=== PATIENT | female | born 1940 | race African-American/Black ===

== ENCOUNTER 2017-03-29 20:29 | Inpatient (IN) | payer MEDICARE ==
[~2017-03-29] VITALS: Ht 165.1 cm; Wt 50.8 kg
[~2017-03-29 20:29] MED LIST: MULT-1146 PO
[2017-03-29] MEDS ORDERED: IPRATROPIUM BROMIDE (0.02%) 0.5MG/2.5ML NEB HHN STA (20:32)
[2017-03-29] MEDS ORDERED: ALBUTEROL (0.083%) 2.5MG/3ML NEB HHN STA (20:32)
[2017-03-29] MEDS ORDERED: METHYLPREDNISOLONE SOD SUCC 125 MG/2 ML VIAL IV STA (20:32)
[2017-03-29] MEDS ORDERED: IPRATROPIUM/ALBUTEROL 0.5-3(2.5)MG/3ML NEB ONE (20:42)
[2017-03-29] MEDS ORDERED: IPRATROPIUM BROMIDE (0.02%) 0.5MG/2.5ML NEB ONE (20:42)
[2017-03-29 21:17] LABS: BG BASE EXCESS -4.5 mmol/L (-2.0-2.0); BG BILEVEL POS AIRWAY PRESSURE 15/5; BG CARBOXYHEMOGLOBIN 0.3 % (0.5-1.5); BG DEOXYHEMOGLOBIN 1.2 % (0.0-5.0); BG FRACTION INSPIRED OXYGEN 50; BG HCO3 ACT 20.8 mmol/L (22.0-26.0); BG METHEMOGLOBIN 0.1 % (0.0-1.5); BG OXYGEN SATURATION 98.8 % (92.0-98.5); BG OXYHEMOGLOBIN 98.4 % (94.0-97.0); BG PCO2 38.9 mmHg (35.0-45.0); BG PH 7.346 (7.350-7.450); BG PO2 160.2 mmHg (75.0-100.0); BG SAMPLE SITE LEFT RADIAL; BG TIDAL VOLUME(mL) 528 mL; BG TOTAL HEMOGLOBIN 11.1 g/dL (12.0-18.0); BG VENT MODE MASK - BIPAP; BG VENT RATE 20 set
[2017-03-29 21:34] LABS: CHLORIDE 103 mEq/L (98-107)
[2017-03-29 21:35] LABS: INR 1.1; PARTIAL THROMBOPLASTIN TIME 36.2 sec (24.0-34.0)
[2017-03-29 21:43] LABS: CARBON DIOXIDE 21 mEq/L (21-32); TROPONIN I < 0.02 ng/mL (0.00-0.04)
[2017-03-29] MEDS ORDERED: LEVOFLOXACIN 500MG PREMIX 100 ML IV ONE (22:00)
[2017-03-29] MEDS ORDERED: FUROSEMIDE 20MG/2ML VIAL IVP ONE (22:00)
[2017-03-29 22:14] LABS: BASOPHILS % 0.2 % (0.0-2.0); EOSINOPHILS % 0.2 % (0.0-5.0); HEMATOCRIT. 29.3 % (36.0-48.0); HEMOGLOBIN. 9.8 g/dL (12.0-16.0); LYMPHOCYTES % 34.5 % (20.0-50.0); MEAN CORPUSCULAR HEMOGLOBIN 35.4 pg (28.0-32.0); MEAN CORPUSCULAR VOLUME 105.5 fL (81.0-99.0); MEAN PLATELET VOLUME 9.6 fl (7.4-10.4); MONOCYTES % 11.5 % (2.0-8.0); NEUTROPHILS % 53.6 % (40.0-76.0); PLATELET 110 x1000/uL (130-400); RED BLOOD CELL COUNT 2.77 mill/uL (4.2-5.4); RED CELL DISTRIBUTION WIDTH 19.8 % (11.6-14.6)
[2017-03-29] MEDS ORDERED: ENOXAPARIN 60MG/0.6ML SYR SUBCUT ONE (22:15)
[2017-03-29] MEDS ORDERED: CLONIDINE 0.1MG TABLET PO PRN (23:00)
[2017-03-29] MEDS ORDERED: ACETAMINOPHEN 325MG TABLET PO PRN (23:00)
[2017-03-29] MEDS ORDERED: GUAIFENESIN 200MG/10ML SUGAR FREE UDC PO PRN (23:00)
[2017-03-29] MEDS ORDERED: NA PHOS,M-B/NA PHOS,DI-BA ENEMA 118ML PR PRN (23:00)
[2017-03-29] MEDS ORDERED: LORAZEPAM 2MG/ML CPJ IV PRN (23:00)
[2017-03-29] MEDS ORDERED: HYDROMORPHONE HCL/PF 2MG/ML CPJ IV PRN (23:00)
[2017-03-29] MEDS ORDERED: DIPHENHYDRAMINE 50MG/ML VIAL IV PRN (23:00)
[2017-03-29] MEDS ORDERED: MAGNESIUM/ALUMINUM HYDROXIDE/SIMETHICONE 30ML UDC PO PRN (23:00)
[2017-03-29] MEDS ORDERED: ONDANSETRON HCL 4MG/2ML VIAL IV PRN (23:00)
[2017-03-29] MEDS ORDERED: HYDROCODONE/ACETAMINOPHEN 5/325MG TABLET PO PRN (23:00)
[2017-03-29 23:33] LABS: CLARITY URINE TURBID (CLEAR); COLOR URINE YELLOW (YELLOW); GLUCOSE URINE NEGATIVE (NEGATIVE); KETONES URINE NEGATIVE (NEGATIVE); LEUKOCYTE ESTERASE URINE 3+ (NEGATIVE); NITRITE URINE NEGATIVE (NEGATIVE); OCCULT BLOOD URINE 2+ (NEGATIVE); PH URINE 5.5 (4.5-8.0); PROTEIN URINE TRACE (NEGATIVE); SPECIFIC GRAVITY URINE 1.012 (1.005-1.030); UROBILINOGEN URINE 0.2 E.U./dL (0.2-1.0)
[2017-03-30] VITALS (37 sets, daily range): BP systolic 66–148; BP diastolic 26–119
[2017-03-30] MEDS ORDERED: AMLO10TA80 PO (01:43)
[2017-03-30] MEDS ORDERED: LOV40 SQ (01:45)
[2017-03-30] MEDS ORDERED: METO25TA6 PO (01:45)
[2017-03-30] MEDS ORDERED: DEXTROSE 50% WATER 50ML SYRINGE IV PRN (01:45)
[2017-03-30] MEDS ORDERED: ENOXAPARIN 40MG/0.4ML SYR SUBCUT SCH ×2 (02:00→09:00)
[2017-03-30 05:27] LABS: HEMOGLOBIN. 10.3 g/dL (12.0-16.0); MEAN CORPUSCULAR HEMOGLOBIN 34.5 pg (28.0-32.0); MEAN CORPUSCULAR VOLUME 103.4 fL (81.0-99.0); MEAN PLATELET VOLUME 10.6 fl (7.4-10.4); PLATELET 75 x1000/uL (130-400); RED CELL DISTRIBUTION WIDTH 20.2 % (11.6-14.6)
[2017-03-30 05:51] LABS: CARBON DIOXIDE 18 mEq/L (21-32); CHLORIDE 105 mEq/L (98-107); HDL CHOLESTEROL 40 mg/dL (40-59); LDL CHOLESTEROL 87 mg/dL (5-100); TROPONIN I < 0.02 ng/mL (0.00-0.04)
[2017-03-30 07:40] LABS: PLATELET ESTIMATE DECREASED
[2017-03-30] MEDS: IPRATROPIUM/ALBUTEROL 0.5-3(2.5)MG/3ML NEB INH PRN ×4 (08:09→20:26)
[2017-03-30] MEDS: BLOOD SUGAR DIAGNOSTIC STRIP TEST SCH ×4 (08:20→21:00)
[2017-03-30] MEDS: INSULIN LISPRO 100 UNITS/ML SUBCUT SCH ×4 (08:20→21:00)
[2017-03-30] MEDS ORDERED: ENOXAPARIN 60MG/0.6ML SYR SUBCUT SCH ×2 (09:00)
[2017-03-30] MEDS: CHOLECALCIFEROL (D3) 1000 UNIT TABLET PO SCH (09:21)
[2017-03-30] MEDS: AMLODIPINE 5MG TABLET PO SCH (09:21)
[2017-03-30] MEDS: FUROSEMIDE 40MG/4ML VIAL IV SCH (09:21)
[2017-03-30] MEDS: METOPROLOL TARTRATE 25MG TABLET PO SCH ×2 (09:22→21:00)
[2017-03-30] MEDS: ASPIRIN 81MG EC TABLET PO SCH (09:22)
[2017-03-30] MEDS: DOCUSATE SODIUM 100MG CAPSULE PO PRN (09:22)
[2017-03-30 09:26] LABS: T4 FREE 1.48 ng/dL (0.76-1.46)
[2017-03-30 09:49] LABS: BG BASE EXCESS -6.8 mmol/L (-2.0-2.0); BG CARBOXYHEMOGLOBIN 0.3 % (0.5-1.5); BG DEOXYHEMOGLOBIN 3.4 % (0.0-5.0); BG FRACTION INSPIRED OXYGEN 32; BG HCO3 ACT 17.7 mmol/L (22.0-26.0); BG METHEMOGLOBIN 0.2 % (0.0-1.5); BG OXYGEN SATURATION 96.6 % (92.0-98.5); BG OXYHEMOGLOBIN 96.1 % (94.0-97.0); BG PCO2 31.6 mmHg (35.0-45.0); BG PH 7.365 (7.350-7.450); BG PO2 96.1 mmHg (75.0-100.0); BG SAMPLE SITE RIGHT RADIAL; BG VENT MODE NASAL CANNULA
[2017-03-30] MEDS ORDERED: IOHEXOL-350 100 ML BOTTLE ONE (11:42)
[2017-03-30] MEDS ORDERED: SODIUM CHLORIDE 0.9% 10ML VIAL ONE (11:42)
[2017-03-30 15:19] LABS: CREATINE KINASE 61 IU/L (26-192); CREATINE KINASE MB FRACTION 2.4 ng/mL (0.5-3.6); TROPONIN I < 0.02 ng/mL (0.00-0.04)
[2017-03-30 23:46] LABS: CREATINE KINASE 37 IU/L (26-192); TROPONIN I < 0.02 ng/mL (0.00-0.04)
[2017-03-31] VITALS (45 sets, daily range): BP systolic 87–131; BP diastolic 48–75
[2017-03-31] MEDS: IPRATROPIUM/ALBUTEROL 0.5-3(2.5)MG/3ML NEB INH PRN ×2 (00:16→08:08)
[2017-03-31 05:31] LABS: CREATINE KINASE MB FRACTION 1.7 ng/mL (0.5-3.6)
[2017-03-31 07:01] LABS: MEAN CORPUSCULAR HEMOGLOBIN 33.2 pg (28.0-32.0); MEAN CORPUSCULAR VOLUME 101.4 fL (81.0-99.0); MEAN PLATELET VOLUME 9.2 fl (7.4-10.4); PLATELET 97 x1000/uL (130-400); RED CELL DISTRIBUTION WIDTH 19.8 % (11.6-14.6)
[2017-03-31 07:03] LABS: HEMATOCRIT. 23.3 % (36.0-48.0); HEMOGLOBIN. 7.6 g/dL (12.0-16.0)
[2017-03-31] MEDS: BLOOD SUGAR DIAGNOSTIC STRIP TEST SCH ×4 (07:50→21:28)
[2017-03-31 08:11] LABS: PLATELET ESTIMATE DECREASED
[2017-03-31] MEDS: INSULIN LISPRO 100 UNITS/ML SUBCUT SCH ×4 (08:12→21:00)
[2017-03-31] MEDS: METOPROLOL TARTRATE 25MG TABLET PO SCH ×2 (09:00→21:00)
[2017-03-31] MEDS: AMLODIPINE 5MG TABLET PO SCH (09:00)
[2017-03-31] MEDS: ASPIRIN 81MG EC TABLET PO SCH (09:15)
[2017-03-31] MEDS: FUROSEMIDE 40MG/4ML VIAL IV SCH (09:15)
[2017-03-31] MEDS: CHOLECALCIFEROL (D3) 1000 UNIT TABLET PO SCH (09:16)
[2017-03-31] MEDS: IPRATROPIUM/ALBUTEROL 0.5-3(2.5)MG/3ML NEB HHN SCH ×3 (11:34→20:14)
[2017-04-01] VITALS (38 sets, daily range): BP systolic 94–152; BP diastolic 49–84
[2017-04-01] MEDS: IPRATROPIUM/ALBUTEROL 0.5-3(2.5)MG/3ML NEB HHN SCH ×7 (00:10→23:43)
[2017-04-01 05:18] LABS: HEMATOCRIT. 22.5 % (36.0-48.0); HEMOGLOBIN. 7.8 g/dL (12.0-16.0); MEAN CORPUSCULAR HEMOGLOBIN 35.8 pg (28.0-32.0); MEAN CORPUSCULAR VOLUME 103.6 fL (81.0-99.0); MEAN PLATELET VOLUME 9.6 fl (7.4-10.4); PLATELET 104 x1000/uL (130-400); RED BLOOD CELL COUNT 2.17 mill/uL (4.2-5.4); RED CELL DISTRIBUTION WIDTH 19.3 % (11.6-14.6)
[2017-04-01] MEDS: BLOOD SUGAR DIAGNOSTIC STRIP TEST SCH ×4 (07:42→21:00)
[2017-04-01] MEDS: INSULIN LISPRO 100 UNITS/ML SUBCUT SCH ×4 (07:42→21:00)
[2017-04-01] MEDS: METOPROLOL TARTRATE 25MG TABLET PO SCH ×2 (09:00→22:12)
[2017-04-01] MEDS: AMLODIPINE 5MG TABLET PO SCH (09:00)
[2017-04-01] MEDS: CHOLECALCIFEROL (D3) 1000 UNIT TABLET PO SCH (09:14)
[2017-04-01] MEDS: ASPIRIN 81MG EC TABLET PO SCH (09:14)
[2017-04-01] MEDS: FUROSEMIDE 40MG/4ML VIAL IV SCH (09:14)
[2017-04-01] MEDS: PANTOPRAZOLE SODIUM 40 MG/VIAL IV SCH (11:36)
[2017-04-01 11:57] LABS: NUCLEATED RED BLOOD CELLS 1 /100 WBC
[2017-04-01 11:58] LABS: PLATELET ESTIMATE SLIGHTLY DECREASED
[2017-04-01] MEDS ORDERED: LEVOFLOXACIN 500MG PREMIX 100 ML IV NR (18:00)
[2017-04-02] VITALS (24 sets, daily range): BP systolic 116–145; BP diastolic 69–87
[2017-04-02] MEDS: IPRATROPIUM/ALBUTEROL 0.5-3(2.5)MG/3ML NEB HHN SCH ×5 (03:33→19:38)
[2017-04-02 06:06] LABS: HEMATOCRIT. 32.2 % (36.0-48.0); HEMOGLOBIN. 11.6 g/dL (12.0-16.0); MEAN CORPUSCULAR HEMOGLOBIN 36.9 pg (28.0-32.0); MEAN CORPUSCULAR VOLUME 102.9 fL (81.0-99.0); PLATELET 102 x1000/uL (130-400); RED BLOOD CELL COUNT 3.13 mill/uL (4.2-5.4); RED CELL DISTRIBUTION WIDTH 19.6 % (11.6-14.6)
[2017-04-02 07:12] LABS: PLATELET ESTIMATE DECREASED
[2017-04-02] MEDS: BLOOD SUGAR DIAGNOSTIC STRIP TEST SCH ×4 (07:50→21:21)
[2017-04-02] MEDS: INSULIN LISPRO 100 UNITS/ML SUBCUT SCH ×4 (07:55→21:32)
[2017-04-02] MEDS: AMLODIPINE 5MG TABLET PO SCH (09:00)
[2017-04-02] MEDS: CHOLECALCIFEROL (D3) 1000 UNIT TABLET PO SCH (09:25)
[2017-04-02] MEDS: PANTOPRAZOLE SODIUM 40 MG/VIAL IV SCH (09:25)
[2017-04-02] MEDS: ASPIRIN 81MG EC TABLET PO SCH (09:25)
[2017-04-02] MEDS: FUROSEMIDE 40MG/4ML VIAL IV SCH (09:25)
[2017-04-02] MEDS: METOPROLOL TARTRATE 25MG TABLET PO SCH ×2 (09:26→21:31)
[2017-04-02] MEDS: METHYLPREDNISOLONE SOD SUCC 40 MG/ML VIAL IV SCH ×2 (10:52→17:58)
[2017-04-02] MEDS: DOCUSATE SODIUM 100MG CAPSULE PO PRN (10:52)
[2017-04-02] MEDS: LEVOFLOXACIN 250MG PREMIX 50 ML IV SCH (14:39)
[2017-04-03] VITALS (24 sets, daily range): BP systolic 117–153; BP diastolic 62–92
[2017-04-03] MEDS: IPRATROPIUM/ALBUTEROL 0.5-3(2.5)MG/3ML NEB HHN SCH ×6 (00:09→20:12)
[2017-04-03] MEDS: METHYLPREDNISOLONE SOD SUCC 40 MG/ML VIAL IV SCH ×3 (02:51→18:03)
[2017-04-03 05:40] LABS: HEMATOCRIT. 33.4 % (36.0-48.0); HEMOGLOBIN. 11.5 g/dL (12.0-16.0); MEAN CORPUSCULAR HEMOGLOBIN 34.3 pg (28.0-32.0); MEAN CORPUSCULAR VOLUME 99.3 fL (81.0-99.0); MEAN PLATELET VOLUME 9.1 fl (7.4-10.4); PLATELET 102 x1000/uL (130-400); RED BLOOD CELL COUNT 3.36 mill/uL (4.2-5.4); RED CELL DISTRIBUTION WIDTH 19.4 % (11.6-14.6)
[2017-04-03] MEDS: BLOOD SUGAR DIAGNOSTIC STRIP TEST SCH ×4 (07:14→20:12)
[2017-04-03] MEDS: INSULIN LISPRO 100 UNITS/ML SUBCUT SCH ×4 (07:57→20:12)
[2017-04-03] MEDS: ASPIRIN 81MG EC TABLET PO SCH (09:29)
[2017-04-03] MEDS: CHOLECALCIFEROL (D3) 1000 UNIT TABLET PO SCH (09:29)
[2017-04-03] MEDS: AMLODIPINE 5MG TABLET PO SCH (09:29)
[2017-04-03] MEDS: FUROSEMIDE 40MG/4ML VIAL IV SCH (09:30)
[2017-04-03] MEDS: PANTOPRAZOLE SODIUM 40 MG/VIAL IV SCH (09:30)
[2017-04-03] MEDS: METOPROLOL TARTRATE 25MG TABLET PO SCH ×2 (09:30→20:12)
[2017-04-03 10:36] LABS: PLATELET ESTIMATE SLIGHTLY DECREASED
[2017-04-03] MEDS: LEVOFLOXACIN 250MG PREMIX 50 ML IV SCH (13:59)
[2017-04-04] VITALS (19 sets, daily range): BP systolic 123–161; BP diastolic 64–94
[2017-04-04] MEDS: IPRATROPIUM/ALBUTEROL 0.5-3(2.5)MG/3ML NEB HHN SCH ×6 (00:02→19:44)
[2017-04-04] MEDS: METHYLPREDNISOLONE SOD SUCC 40 MG/ML VIAL IV SCH ×3 (02:09→17:55)
[2017-04-04 07:37] LABS: HEMATOCRIT. 35.7 % (36.0-48.0); HEMOGLOBIN. 12.1 g/dL (12.0-16.0); MEAN CORPUSCULAR HEMOGLOBIN 33.1 pg (28.0-32.0); MEAN CORPUSCULAR VOLUME 97.5 fL (81.0-99.0); PLATELET 106 x1000/uL (130-400); RED BLOOD CELL COUNT 3.66 mill/uL (4.2-5.4); RED CELL DISTRIBUTION WIDTH 19.4 % (11.6-14.6)
[2017-04-04] MEDS: BLOOD SUGAR DIAGNOSTIC STRIP TEST SCH ×4 (07:50→21:07)
[2017-04-04] MEDS: INSULIN LISPRO 100 UNITS/ML SUBCUT SCH ×4 (08:20→21:00)
[2017-04-04] MEDS: PANTOPRAZOLE SODIUM 40 MG/VIAL IV SCH (09:18)
[2017-04-04] MEDS: ASPIRIN 81MG EC TABLET PO SCH (09:18)
[2017-04-04] MEDS: FUROSEMIDE 40MG/4ML VIAL IV SCH (09:18)
[2017-04-04] MEDS: CHOLECALCIFEROL (D3) 1000 UNIT TABLET PO SCH (09:19)
[2017-04-04] MEDS: METOPROLOL TARTRATE 25MG TABLET PO SCH ×2 (09:19→21:07)
[2017-04-04] MEDS: AMLODIPINE 5MG TABLET PO SCH (09:20)
[2017-04-04] MEDS: LEVOFLOXACIN 250MG PREMIX 50 ML IV SCH (14:29)
[2017-04-05] VITALS: BP 125/82
[2017-04-05] MEDS: IPRATROPIUM/ALBUTEROL 0.5-3(2.5)MG/3ML NEB HHN SCH ×6 (01:08→21:10)
[2017-04-05] MEDS: METHYLPREDNISOLONE SOD SUCC 40 MG/ML VIAL IV SCH ×3 (02:27→17:15)
[2017-04-05 04:00] VITALS: BP 123/71
[2017-04-05] MEDS: BLOOD SUGAR DIAGNOSTIC STRIP TEST SCH ×4 (06:08→20:23)
[2017-04-05] MEDS: INSULIN LISPRO 100 UNITS/ML SUBCUT SCH ×4 (06:08→20:23)
[2017-04-05 08:00] VITALS: BP 137/65
[2017-04-05 08:48] LABS: HEMATOCRIT. 35.7 % (36.0-48.0); HEMOGLOBIN. 12.4 g/dL (12.0-16.0); MEAN CORPUSCULAR HEMOGLOBIN 34.3 pg (28.0-32.0); MEAN CORPUSCULAR VOLUME 98.6 fL (81.0-99.0); MEAN PLATELET VOLUME 8.9 fl (7.4-10.4); PLATELET 128 x1000/uL (130-400); RED BLOOD CELL COUNT 3.62 mill/uL (4.2-5.4); RED CELL DISTRIBUTION WIDTH 18.8 % (11.6-14.6)
[2017-04-05 09:19] LABS: PLATELET ESTIMATE NORMAL
[2017-04-05] MEDS: FUROSEMIDE 40MG/4ML VIAL IV SCH (09:58)
[2017-04-05] MEDS: CHOLECALCIFEROL (D3) 1000 UNIT TABLET PO SCH (09:59)
[2017-04-05] MEDS: ASPIRIN 81MG EC TABLET PO SCH (09:59)
[2017-04-05] MEDS: METOPROLOL TARTRATE 25MG TABLET PO SCH ×2 (10:00→20:26)
[2017-04-05] MEDS: AMLODIPINE 5MG TABLET PO SCH (10:00)
[2017-04-05] MEDS: PANTOPRAZOLE SODIUM 40 MG/VIAL IV SCH (10:00)
[2017-04-05 12:00] VITALS: BP 126/77
[2017-04-05] MEDS: LEVOFLOXACIN 250MG PREMIX 50 ML IV SCH (15:09)
[2017-04-05 16:00] VITALS: BP 126/75
[2017-04-05 20:00] VITALS: BP 125/69
[2017-04-06] VITALS: BP 115/69
[2017-04-06] MEDS: IPRATROPIUM/ALBUTEROL 0.5-3(2.5)MG/3ML NEB HHN SCH ×4 (01:18→11:16)
[2017-04-06] MEDS: METHYLPREDNISOLONE SOD SUCC 40 MG/ML VIAL IV SCH ×2 (02:02→09:51)
[2017-04-06] MEDS: INSULIN LISPRO 100 UNITS/ML SUBCUT SCH ×2 (07:15→12:15)
[2017-04-06 07:24] LABS: HEMATOCRIT. 37.2 % (36.0-48.0); HEMOGLOBIN. 12.6 g/dL (12.0-16.0); MEAN CORPUSCULAR VOLUME 97.7 fL (81.0-99.0); MEAN PLATELET VOLUME 8.8 fl (7.4-10.4); PLATELET 129 x1000/uL (130-400); RED CELL DISTRIBUTION WIDTH 19.3 % (11.6-14.6)
[2017-04-06] MEDS: BLOOD SUGAR DIAGNOSTIC STRIP TEST SCH ×2 (07:41→12:21)
[2017-04-06 08:30] VITALS: BP 80/62
[2017-04-06] MEDS ORDERED: POTASSIUM CHLORIDE 20MEQ TABLET SR PO NR (09:00)
[2017-04-06] MEDS: CHOLECALCIFEROL (D3) 1000 UNIT TABLET PO SCH (09:51)
[2017-04-06] MEDS: PANTOPRAZOLE SODIUM 40 MG/VIAL IV SCH (09:51)
[2017-04-06] MEDS: ASPIRIN 81MG EC TABLET PO SCH (09:51)
[2017-04-06] MEDS: AMLODIPINE 5MG TABLET PO SCH (09:56)
[2017-04-06] MEDS: METOPROLOL TARTRATE 25MG TABLET PO SCH (09:57)
[2017-04-06] MEDS: FUROSEMIDE 40MG/4ML VIAL IV SCH (09:57)
[2017-04-06 12:00] VITALS: BP 124/68
[2017-04-06 12:15] LABS: PLATELET ESTIMATE SLIGHTLY DECREASED
[2017-04-06 12:30] VITALS: BP 124/68
[2017-04-06 14:54] VITALS: BP 124/68
== END 2017-04-06 15:30 | disposition home health service (06) | DRG 871 ==
LOC: ER 20:32 → CVICU 22:44 → ENRESERV 03-30 00:05 → CVICU 03-30 18:03 → 5WST 04-04 20:28
PROVIDERS: ADMIT Internal Medicine; ATTEND Internal Medicine
PROC: 5A09557 Assistance with Respiratory Ventilation, Greater than 96 Consecutive Hours, Continuous Positive Airway Pressure (ICD-10-PCS; 2017-03-29)
PROC: 30233N1 Transfusion of Nonautologous Red Blood Cells into Peripheral Vein, Percutaneous Approach (ICD-10-PCS; principal; 2017-04-01)
DX: A41.9 Sepsis, unspecified organism (principal); G93.41 Metabolic encephalopathy; J96.00 Acute respiratory failure, unspecified whether with hypoxia or hypercapnia; C78.00 Secondary malignant neoplasm of unspecified lung; N39.0 Urinary tract infection, site not specified; I82.432 Acute embolism and thrombosis of left popliteal vein; I82.412 Acute embolism and thrombosis of left femoral vein; E46 Unspecified protein-calorie malnutrition; Z68.1 Body mass index [BMI] 19.9 or less, adult; Z66 Do not resuscitate; D64.9 Anemia, unspecified; D69.6 Thrombocytopenia, unspecified; I11.0 Hypertensive heart disease with heart failure; J45.909 Unspecified asthma, uncomplicated; Z51.5 Encounter for palliative care; C53.9 Malignant neoplasm of cervix uteri, unspecified; L89.629 Pressure ulcer of left heel, unspecified stage; Z79.899 Other long term (current) drug therapy; Z85.43 Personal history of malignant neoplasm of ovary
CPT/HCPCS: 36415; 36600; 51702; 71010; 71275; 80048; 80053; 80061; 81001; 82270; 82375; 82550; 82553; 82805; 82962; 83036; 83605; 83690; 83880; 84439; 84443; 84484; 85025; 85379; 85610; 85730; 86850; 86860; 86870; 86880; 86900; 86906; 86920; 86970; 86971; 87040; 87086; 87106; 93005; 93306; 93970; 94640; 94660; 96372; 96374; 96375; 99291; A4216; A6261; C9113; J1650; J1815; J1940; J1956; J2060; J2920; J2930; J7040; J7050; J7620; P9016; Q9967; A4315

== ENCOUNTER 2017-06-15 12:04 | Inpatient (IN) | payer MEDICARE ==
[~2017-06-15] VITALS: Ht 162.6 cm; Wt 49.9 kg
[~2017-06-15 12:04] MED LIST changes: +AMLO10TA80 PO; +LOV40 SQ; +METO25TA6 PO
[2017-06-15] MEDS ORDERED: SODIUM CHLORIDE 0.9% 1000ML BAG (SEPSIS BOLUS) IV ONE (12:45)
[2017-06-15 13:43] LABS: HEMATOCRIT. 47.1 % (36.0-48.0); HEMOGLOBIN. 14.6 g/dL (12.0-16.0); MEAN CORPUSCULAR HEMOGLOBIN 30.3 pg (28.0-32.0); MEAN CORPUSCULAR VOLUME 97.8 fL (81.0-99.0); MEAN PLATELET VOLUME 10.7 fl (7.4-10.4); PLATELET 188 x1000/uL (130-400); RED BLOOD CELL COUNT 4.81 mill/uL (4.2-5.4); RED CELL DISTRIBUTION WIDTH 18.1 % (11.6-14.6)
[2017-06-15 13:48] LABS: INR 1.3; PROTHROMBIN TIME 13.8 sec (9.4-11.6)
[2017-06-15 14:03] LABS: CARBON DIOXIDE 16 mEq/L (21-32); CHLORIDE 130 mEq/L (98-107)
[2017-06-15 14:08] LABS: BG BASE EXCESS -13.3 mmol/L (-2.0-2.0); BG CARBOXYHEMOGLOBIN 0.2 % (0.5-1.5); BG DEOXYHEMOGLOBIN 2.1 % (0.0-5.0); BG FRACTION INSPIRED OXYGEN 28; BG HCO3 ACT 11.4 mmol/L (22.0-26.0); BG OXYGEN SATURATION 97.9 % (92.0-98.5); BG OXYHEMOGLOBIN 97.7 % (94.0-97.0); BG PCO2 24.3 mmHg (35.0-45.0); BG PH 7.289 (7.350-7.450); BG PO2 129.6 mmHg (75.0-100.0); BG SAMPLE SITE RIGHT BRACHIAL; BG TOTAL HEMOGLOBIN 13.5 g/dL (12.0-18.0); BG VENT MODE NASAL CANNULA
[2017-06-15 14:16] LABS: CLARITY URINE CLOUDY (CLEAR); COLOR URINE YELLOW (YELLOW); GLUCOSE URINE NEGATIVE (NEGATIVE); KETONES URINE NEGATIVE (NEGATIVE); LEUKOCYTE ESTERASE URINE NEGATIVE (NEGATIVE); NITRITE URINE NEGATIVE (NEGATIVE); OCCULT BLOOD URINE NEGATIVE (NEGATIVE); PROTEIN URINE NEGATIVE (NEGATIVE); SPECIFIC GRAVITY URINE 1.018 (1.005-1.030); UROBILINOGEN URINE 0.2 E.U./dL (0.2-1.0)
[2017-06-15 14:43] LABS: PLATELET ESTIMATE NORMAL
[2017-06-15] MEDS ORDERED: SODIUM CHLORIDE 0.45% 1,000 ML IV ONE ×2 (15:45)
[2017-06-15] MEDS ORDERED: CEFTRIAXONE 1 G PREMIX 50 ML IV ONE (15:45)
[2017-06-15 21:00] VITALS: BP 117/80
[2017-06-16] VITALS: BP 125/86
[2017-06-16] MEDS ORDERED: MAGNESIUM/ALUMINUM HYDROXIDE/SIMETHICONE 30ML UDC PO PRN (01:00)
[2017-06-16] MEDS ORDERED: CLONIDINE 0.1MG TABLET PO PRN (01:00)
[2017-06-16] MEDS ORDERED: ENOXAPARIN 40MG/0.4ML SYR SUBCUT SCH (01:00)
[2017-06-16] MEDS ORDERED: ONDANSETRON HCL 4MG/2ML VIAL IV PRN (01:00)
[2017-06-16] MEDS ORDERED: ACETAMINOPHEN 325MG TABLET PO PRN (01:00)
[2017-06-16] MEDS ORDERED: DEXTROSE 5% WATER 1,000 ML IV SCH (01:00)
[2017-06-16] MEDS ORDERED: PIPERACILLIN/TAZ 3.375G PREMIX 50 ML IV SCH (01:00)
[2017-06-16] MEDS ORDERED: IPRATROPIUM/ALBUTEROL 0.5-3(2.5)MG/3ML NEB INH PRN (01:00)
[2017-06-16] MEDS: PIPERACILLIN/TAZ 2.25G PREMIX 50 ML IV SCH ×3 (03:00→17:40)
[2017-06-16 04:00] VITALS: BP 104/68
[2017-06-16 08:00] VITALS: BP 125/68
[2017-06-16 08:24] LABS: CREATINE KINASE MB FRACTION 7.1 ng/mL (0.5-3.6); TROPONIN I 0.17 ng/mL (0.00-0.04)
[2017-06-16] MEDS: SODIUM BICARBONATE 100 MEQ in DEXTROSE 5% WATER 1,000 ML IV SCH ×2 (08:48→21:27)
[2017-06-16] MEDS: ENOXAPARIN 30MG/0.3ML SYR SUBCUT SCH (08:49)
[2017-06-16 12:00] VITALS: BP 102/68
[2017-06-16 16:00] VITALS: BP 110/71
[2017-06-16 20:00] VITALS: BP 92/64
[2017-06-16 21:02] LABS: TROPONIN I 0.17 ng/mL (0.00-0.04)
[2017-06-17] VITALS: BP 99/69
[2017-06-17] MEDS: PIPERACILLIN/TAZ 2.25G PREMIX 50 ML IV SCH ×2 (02:15→11:00)
[2017-06-17 04:00] VITALS: BP_SYST 128; BP_SYST 133; BP_SYST 98; BP_DIAS 50; BP_DIAS 65; BP_DIAS 78
[2017-06-17 07:41] LABS: BASOPHILS % 0.2 % (0.0-2.0); EOSINOPHILS % 0.6 % (0.0-5.0); HEMATOCRIT. 41.6 % (36.0-48.0); HEMOGLOBIN. 13.4 g/dL (12.0-16.0); LYMPHOCYTES % 9.7 % (20.0-50.0); MEAN CORPUSCULAR HEMOGLOBIN 30.6 pg (28.0-32.0); MEAN CORPUSCULAR VOLUME 94.7 fL (81.0-99.0); MONOCYTES % 3.7 % (2.0-8.0); NEUTROPHILS % 85.8 % (40.0-76.0); PLATELET 98 x1000/uL (130-400); RED BLOOD CELL COUNT 4.39 mill/uL (4.2-5.4); RED CELL DISTRIBUTION WIDTH 17.7 % (11.6-14.6)
[2017-06-17 07:56] VITALS: BP 111/76
[2017-06-17] MEDS: ENOXAPARIN 30MG/0.3ML SYR SUBCUT SCH (09:16)
[2017-06-17] MEDS: SODIUM BICARBONATE 100 MEQ in DEXTROSE 5% WATER 1,000 ML IV SCH (10:24)
[2017-06-17 12:09] VITALS: BP 113/70
[2017-06-17 13:15] VITALS: BP 113/70
== END 2017-06-17 15:59 | disposition hospice, home (50) | DRG 682 ==
LOC: ER 12:06 → 8WST 16:17 → ENRESERV 19:31
PROVIDERS: ADMIT Internal Medicine; ATTEND Internal Medicine
DX: N17.0 Acute kidney failure with tubular necrosis (principal); G93.40 Encephalopathy, unspecified; E43 Unspecified severe protein-calorie malnutrition; E87.0 Hyperosmolality and hypernatremia; C78.00 Secondary malignant neoplasm of unspecified lung; C55 Malignant neoplasm of uterus, part unspecified; C78.7 Secondary malignant neoplasm of liver and intrahepatic bile duct; E86.0 Dehydration; C79.51 Secondary malignant neoplasm of bone; E87.2 Acidosis; Z68.1 Body mass index [BMI] 19.9 or less, adult; Z66 Do not resuscitate; Z51.5 Encounter for palliative care; D64.9 Anemia, unspecified; D72.829 Elevated white blood cell count, unspecified; I07.1 Rheumatic tricuspid insufficiency; I10 Essential (primary) hypertension; Z79.899 Other long term (current) drug therapy; Z87.891 Personal history of nicotine dependence; Z86.718 Personal history of other venous thrombosis and embolism
CPT/HCPCS: 36415; 36600; 71010; 76770; 80048; 80053; 80061; 81001; 82375; 82550; 82553; 82805; 82962; 83605; 83735; 84443; 84484; 85025; 85610; 87040; 93005; 93970; 94664; 96361; 96365; 96366; 99285; C1893; J0696; J1650; J2543; J3490; J7030; J7060; J7070; J7620